=== PATIENT | male | born 1985 | race Caucasian/White ===

== ENCOUNTER 2016-12-14 02:34 | Emergency (ER) | payer SELFPAY ==
[2015-12-21 03:45] VITALS: BP 147/93
--- NOTE | 2016-12-14 02:47 | ED.ADGEN ---
Past History Past Medical History: Bipolar Past Surgical History: No Surgical History Alcohol Use: Occasionally Drug Use: Marijuana Adult General HPI HPI Patient is a [age] year old [sex] who presents with [] Review of Systems Review of Systems Constitutional: Denies fever or chills [] Eyes: Denies change in visual acuity, redness, or eye pain [] HENT: Denies nasal congestion or sore throat [] Respiratory: Denies cough or shortness of breath [] Cardiovascular: No additional information not addressed in HPI [] GI: Denies abdominal pain, nausea, vomiting, bloody stools or diarrhea [] : Denies dysuria or hematuria [] Musculoskeletal: Denies back pain or joint pain [] Integument: Denies rash or skin lesions [] Neurologic: Denies headache, focal weakness or sensory changes [] Endocrine: Denies polyuria or polydipsia [] Allergies Allergies Allergies Coded Allergies Type Severity Reaction Last Updated Verified No Known Drug Allergies 12/21/15 No Physical Exam Physical Exam Constitutional: Well developed, well nourished, no acute distress, non-toxic appearance. [] HENT: Normocephalic, atraumatic, bilateral external ears normal, oropharynx moist, no oral exudates, nose normal. [] Eyes: PERRLA, EOMI, conjunctiva normal, no discharge. [] Neck: Normal range of motion, no tenderness, supple, no stridor. [] Cardiovascular:Heart rate regular rhythm, no murmur [] Lungs & Thorax: Bilateral breath sounds clear to auscultation [] Abdomen: Bowel sounds normal, soft, no tenderness, no masses, no pulsatile masses. [] Skin: Warm, dry, no erythema, no rash. [] Back: No tenderness, no CVA tenderness. [] Extremities: No tenderness, no cyanosis, no clubbing, ROM intact, no edema. [] Neurologic: Alert and oriented X 3, normal motor function, normal sensory function, no focal deficits noted. [] Psychologic: Affect normal, judgement normal, mood normal. [] EKG EKG [] Radiology/Procedures Radiology/Procedures [] Course & Med Decision Making Course & Med Decision Making Pertinent Labs and Imaging studies reviewed. (See chart for details) [] Final Impression Final Impression [] Problems: Dragon Disclaimer Dragon Disclaimer This electronic medical record was generated, in whole or in part, using a voice recognition dictation system. MESHA HERMAN MD Dec 14, 2016 02:47
== END 2016-12-14 03:00 | disposition home or self-care (01) ==
LOC: ER 02:34
DX: G47.00 Insomnia, unspecified (principal); Z53.21 Procedure and treatment not carried out due to patient leaving prior to being seen by health care provider

== ENCOUNTER 2021-03-03 02:08 | Emergency (ER) | payer SELFPAY ==
[~2021-03-03] VITALS: Ht 185.4 cm; Wt 100.8 kg
[2021-03-03 02:51] VITALS: BP 141/89
--- NOTE | 2021-03-03 03:08 | PHYS DOC ---
Past History Past Medical History: Bipolar Additional Past Medical Histor: schizophrenia Past Surgical History: No Surgical History Alcohol Use: Occasionally Additional Alcohol Information: twice per week Drug Use: Marijuana General Adult EDM: Chief Complaint: SUICIDAL IDEATION HPI: HPI: ".. I ve been making serious to kill myself.. the voices are worse.. " Patient is a 35 year old male who presents with above hx and complaints of suicidal ideation. Patient does admit to hallucinations. Patient does have a his past history of psychosis-schizophrenia and bipolar disorder. Has been noncompliant with his meds. Has followed at the counseling center. Patient and companied with his brother. Patient requesting referral to [facility]. Patient denies any use of drugs. Patient has previous history of suicide attempts and depression. Patient does smoke tobacco. Patient has had previous evaluations for acute exacerbation of his schizophrenia. Currently patient states that hallucination-voices are not telling him to do any harm to himself or others. Patient denies any recent travel. Patient denies any specific ill contacts. No history of fever or chills. His brother is at bedside. Brother advises when he quits taking his meds he has more mental problems. Review of Systems: Review of Systems: Constitutional: Denies fever or chills Eyes: Denies change in visual acuity HENT: Denies nasal congestion or sore throat Respiratory: Denies cough or shortness of breath Cardiovascular: Denies chest pain or edema GI: Denies abdominal pain, nausea, vomiting, bloody stools or diarrhea : Denies dysuria Musculoskeletal: Denies back pain or joint pain Integument: Denies rash Neurologic: Denies headache, focal weakness or sensory changes Endocrine: Denies polyuria or polydipsia Lymphatic: Denies swollen glands Psychiatric: Complains of hallucinations, suicidal ideation, depression or anxiety Family History: Family History: Noncontributory to presentation. Current Medications: Current Meds: See nursing for home meds Allergies: Allergies: Allergies Coded Allergies Type Severity Reaction Last Updated Verified No Known Drug Allergies 12/21/15 No Physical Exam: PE: Constitutional: Well developed, well nourished, mild to moderate emotional distress, non-toxic appearance. [] HENT: Normocephalic, atraumatic, bilateral external ears normal, oropharynx moist, no oral exudates, nose normal. [] Eyes: PERRLA, EOMI, conjunctiva normal, no discharge. [] Neck: Normal range of motion, no tenderness, supple, no stridor. [] Cardiovascular:Heart rate regular rhythm, no murmur [] Lungs & Thorax: Bilateral breath sounds equal apex with few scattered wheezes auscultation [] Abdomen: Bowel sounds normal, soft, no tenderness, no masses, no pulsatile masses. [] Skin: Warm, dry, no erythema, no rash. [] Back: No tenderness, no CVA tenderness. [] Extremities: No tenderness, no cyanosis, no clubbing, ROM intact, no edema. [] Neurologic: Alert and oriented X 3, normal motor function, normal sensory function, no focal deficits noted. DTRs +2 patella and brachial. Hose Tender equal. Psychologic: Affect anxious, judgement seems aware of risk of self injury and acting on his impulse to kill himself, mood depressed. Reports hallucinations of voices. Current Patient Data: Vital Signs: Vital Signs Date Time Temp Pulse Resp B/P (MAP) Pulse Ox O2 Delivery O2 Flow Rate FiO2 03/03/21 02:51 98.1 93 18 141/89 98 Room Air EKG: EKG: My interpretation EKG shows a sinus rhythm at 87 bpm. Leftward axis. Appears to have a low voltage throughout. No findings of acute STEMI with contralateral changes. Time of EKG is 323 3 hours [] Radiology/Procedures: Radiology/Procedures: [][place] [address] IMAGING REPORT Signed PATIENT: CHARBEL SAENZ ACCOUNT: [id number] : 1985 LOCATION: ER AGE: 35 SEX: M EXAM STATUS: REG ER ORD. PHYSICIAN: NURY KOHLI MD REASON: cough PROCEDURE: PORTABLE CHEST 1V EXAM: XR CHEST 1V 03/03/2021 3:11 AM CLINICAL INDICATION: Cough COMPARISON: None TECHNIQUE: AP upright view of the chest FINDINGS: The heart and mediastinum are normal. Lungs are well-expanded and clear. No consolidation, pleural effusion, or pneumothorax. Pulmonary vascularity is normal. No acute osseous abnormality. IMPRESSION: No acute cardiopulmonary abnormality. Electronically signed by: Charlene Duvall MD (03/03/2021 4:36 AM) [id number] DICTATED AND SIGNED BY: CHARLENE DUVALL MD DATE: 03/03/21 0435 CC: NURY KOHLI MD; PCP,NO ~MTH0 0 Heart Score: C/O Chest Pain: N/A HEART Score for Chest Pain: HEART Score for Chest Pain Response (Comments) Value History Slighlty/Non-Suspicious 0 ECG Normal 0 Age < 45 0 Risk Factors 1 or 2 Risk Factors 1 Troponin < Normal Limit 0 Total 1 Risk Factors: Risk Factors: DM, Current or recent (<one month) smoker, HTN, HLP, family history of CAD, obesity. Risk Scores: Score 0 - 3: 2.5% MACE over next 6 weeks - Discharge Home Score 4 - 6: 20.3% MACE over next 6 weeks - Admit for Clinical Observation Score 7 - 10: 72.7% MACE over next 6 weeks - Early Invasive Strategies Course & Med Decision Making: Course & Med Decision Making Pertinent Labs and Imaging studies reviewed. (See chart for details) Pt. apparently left ED - ran out front door at 0412 hrs. Brother states he will attempt to locate his brother and bring him back if he would come. Impression: 1. Suicidal ideation 2. Schizophrenia 3. Hallucinating 4. Hx. Non-compliance with Psych. meds. [] Dragon Disclaimer: Dragon Disclaimer: This electronic medical record was generated, in whole or in part, using a voice recognition dictation system. Departure Departure: Referrals: PCP,NO (PCP) Dragon Disclaimer This chart was dictated in whole or in part using Voice Recognition software in a busy, high-work load, and often noisy Emergency Department environment. It may contain unintended and wholly unrecognized errors or omissions. NURY KOHLI MD Mar 03, 2021 03:08
[2021-03-03 03:30] LABS: BASO # 0.1 x10^3/uL (0.0-0.2); BASO % 1 % (0-3); EOS # 0.2 x10^3/uL (0.0-0.7); EOS % 3 % (0-3); HEMATOCRIT 41.6 % (39.0-53.0); HEMOGLOBIN 14.1 g/dL (13.0-17.5); LYMPH # 2.7 x10^3/uL (1.0-4.8); LYMPH % 28 % (24-48); MEAN CORPUSCULAR HEMOGLOBIN 31 pg (25-35); MEAN CORPUSCULAR HGB CONC 34 g/dL (31-37); MEAN CORPUSCULAR VOLUME 93 fL (79-100); MONO # 0.6 x10^3/uL (0.0-1.1); MONO % 6 % (0-9); NEUT # 5.8 x10^3uL (1.8-7.7); NEUT % 62 % (31-73); PLATELET COUNT 275 x10^3/uL (140-400); RED BLOOD COUNT 4.48 x10^6/uL (4.30-5.70); RED CELL DISTRIBUTION WIDTH 13.8 % (11.5-14.5); WHITE BLOOD COUNT 9.3 x10^3/uL (4.0-11.0)
--- NOTE | 2021-03-03 04:14 | EKG ---
[address] [address] Test Date: 2021-03-03 Test Time: 03:23:51 Pat Name: CHARBEL SAENZ Department: Room: Gender: M [employer]in [employer]: : 1985 Requested By: NURY KOHLI Order Number: [id number] Reading MD: Measurements Intervals [place] Rate: 87 P: -22 OK: 98 QRS: -14 QRSD: 88 T: 21 QT: 334 QTc: 402 Interpretive Statements SINUS RHYTHM LEFTWARD AXIS LOW LIMB LEAD VOLTAGE NO SPECIFIC ECG ABNORMALITIES RI6.02 No previous ECG available for comparison
--- NOTE | 2021-03-03 04:39 | RAD ---
EXAM: XR CHEST 1V 03/03/2021 3:11 AM CLINICAL INDICATION: Cough COMPARISON: None TECHNIQUE: AP upright view of the chest FINDINGS: The heart and mediastinum are normal. Lungs are well-expanded and clear. No consolidatio n, pleural effusion, or pneumothorax. Pulmonary vascularity is normal. No acute osseous abnormality. IMPRESSION: No acute cardiopulmonary abnormality. Electronically signed by: Charlene Duvall MD (03/03/2021 4:36 AM) [id number]
[2021-03-03 05:33] LABS: ETHANOL < 10 mg/dL (0-10); SALIC 4.3 mg/dL (2.8-20.0)
[2021-03-03 05:34] LABS: ACETAMIN < 2.0 mcg/mL (10-30)
[2021-03-03 05:39] LABS: CALCIUM 8.8 mg/dL (8.5-10.1); CREATININE 1.1 mg/dL (0.7-1.3); GFR 75.7; POTASSIUM 4.1 mmol/L (3.5-5.1)
[2021-03-03 05:41] LABS: DIRECT BILIRUBIN 0.1 mg/dL (0.0-0.2); MAGNESIUM 2.1 mg/dL (1.8-2.4); TOTAL BILIRUBIN 0.3 mg/dL (0.2-1.0); TOTAL PROTEIN 7.6 g/dL (6.4-8.2)
== END 2021-03-03 04:13 | disposition left against medical advice (07) ==
LOC: ER 02:08
DX: R45.851 Suicidal ideations (principal); F20.9 Schizophrenia, unspecified; F31.9 Bipolar disorder, unspecified; Z91.14 Patient's other noncompliance with medication regimen; Z91.5 Personal history of self-harm; Z20.822 Contact with and (suspected) exposure to COVID-19
CPT/HCPCS: 36415; 71045; 80048; 80076; 80329; 82550; 83735; 84443; 84484; 85025; 87426; 93005; 99285; C9803; G0480; U0003